=== PATIENT | female | born 1985 | race Caucasian/White ===

== ENCOUNTER 2016-12-03 21:08 | Emergency (ER) | payer BC ==
[~2016-12-03] VITALS: Ht 165.1 cm; Wt 110.6 kg
[~2016-12-03 21:08] MED LIST: PRENATAL VITAMINS PO
[2016-12-03 21:12] VITALS: Ht 165.1 cm; Wt 110.6 kg
--- NOTE | 2016-12-03 21:12 | NUR ---
TRIAGE NOTE PT VOMITED LARGE AMT OF UNDIGESTED FOOD AND LIQUID RELIEF OF PAIN TEMPORARILY
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
[2016-12-03] MEDS ORDERED: [UNRECOGNIZED DRUG - OTHER] (21:25)
[2016-12-03] MEDS ORDERED: NORMAL SALINE 1,000 ML IV ONE (21:57)
[2016-12-03] MEDS ORDERED: MORPHINE SULFATE 4 MG SYRINGE IV ONE (22:00)
[2016-12-03] MEDS ORDERED: ONDANSETRON 4mg/2ml INJECTION IV ONE (22:00)
--- NOTE | 2016-12-03 22:03 | ERPDOC ---
Departure Disposition Decision Date: Dec 03, 2016 Disposition Decision Time: 23:33 Disposition: 01 DISCHARGED HOME, SELF-CARE Impression Impression Impression: Primary Impression: Cholelithiasis Cholelithiasis location: gallbladder and bile duct Cholecystitis presence: without cholecystitis Biliary obstruction: without biliary obstruction Qualified Codes: K80.70 - Calculus of gallbladder and bile duct without cholecystitis without obstruction Additional Impression: Choledocholithiasis Severity: Moderate Condition: Improved Seen By: Physician only Referrals: ADAN SALDAÑA MD, FACS, CWS 2 Days Your physician 1 Week Patient Instructions: Gallstones (ED), Low Fat Diet (ED) Problems/Meds/Labs Reviewed?: Yes Medications reviewed and manag: Yes Follow up care ordered?: Yes Mental Status: Alert, Oriented Scripts Hydrocodone/Acetaminophen (Hydrocodon-Acetaminophen 5-300) 5-300 Tablet 1 TAB PO Q6HPRN Y for PAIN, #20 TAB Prov: DECEMBEREDILBERTO DO 12/03/16 Ondansetron (Ondansetron Odt) 4 Mg Tab.rapdis 4 MG PO Q6HR, #20 TAB Prov: DECEMBEREDILBERTO DO 12/03/16 HPI - Abdominal Pain General Chief Complaint: Abdominal Pain Stated Complaint: SEVERE STOMACH AND BACK PAIN Time Seen by Provider: 21:43 Source: patient, family History/Exam Limitations: no limitations HPI - Abdominal Pain Initial Comments 31yo woman presents to the ER tonight with upper abdominal pain. Pain started 20min after eating a BLT. Pt has had two other episodes of this in the last week , always after eating. Pain is sharp, radiates to her spine and right shoulder, and are worse with food. Pt has never had pain like this before. Only takes vitamins as outpt. Has been trying to lose wt after her third child (delivered 4mos ago). No prior abdominal injury/surgery. Occurred At: home Onset: Rapid Duration: 1 hr Pain Scale: Now: 3/10, Worst: 8/10 Quality: sharpness, stabbing Location: RUQ, LUQ, epigastric Radiation: shoulder, back Activities at Onset: during/after eating Modifying Factors: IMPROVES WITH: rest, vomiting, WORSE WITH: movement, palpation Associated Symptoms: diaphoresis, heartburn, nausea/vomiting Hx of Similar Symptoms: Yes Allergies: Coded Allergies: No Known Drug Allergies (Verified Allergy, Unknown, 12/03/16) Past History Past Medical History Pt denies signifigant PMH Surgical History Denies Surgeries Family History Family PMH: FOUND: cancer, diabetes Vaccines Hx Influenza Vaccination: Yes (2011) Hx Pneumococcal Vaccination: No Social History Does patient use chewing tobac: No Second Hand Exposure: No Substance Use Type: does not use Alcohol Intake: none Review of Systems GI Upper Abdomen: nausea, pain, vomiting, DENIES: dysphagia, food intolerances, heartburn/indigestion, hematemesis Lower Abdomen: DENIES: blood in stool, daniel-colored stools, constipation, diarrhea, melena, pain, painful BM All other Systems All Other Systems: Reviewed and Negative Physical Exam General General Nourishment: well nourished, well developed, appears stated age, no acute distress, adult, obese General Body Habitus: well groomed Vitals and Pain Weight: Kilograms: 110.600 Height (feet): 5 Height (inches): 5.00 Triage Pain Scale: RN VS reviewed by Provider: Yes Normal Exams: Head: Normocephalic w/o trauma Eyes: Pupils are PERRLA w/ EOMI, No scleral icterus, irritation ENMT: No facial trauma, nasal exudates, pharyngeal erythema Neck: Full range of motion, without adenopathy, JVD Lymphatic: No lymphadenopathy Musculoskeletal: No tenderness, or deformity noted Integumentary: No rashes, hives, or bruising noted Neurologic: Patient is alert, and oriented Psychiatric: Patient exhibits, appropriate attention Respiratory (brief) Respiratory: FOUND: clear all maria, equal bilaterally, symmetrical, NOT FOUND : rales, wheezes Cardiovascular (brief) Cardiac: FOUND: regular rate, regular rhythm, NOT FOUND: click, gallop, murmur , pedal edema, peripheral edema, rub Capillary Refill: <2 sec Pulses: all distal extremities, equal, strong Abdomen (brief) Abdominal Brief: FOUND: bowel normo active x4, soft, tender (Mildly TTP along upper quadrants; no peritoneal signs. Neg Jacky's/Lane's.), NOT FOUND: distended, hepatosplenomegaly, pulsatile mass Differential Diagnoses Considering: Biliary Colic, Bowel Obstruction, Cholecystitis, Gastroenteritis, GERD, Hepatitis, Hernia, IBS, Ileus, Pancreatitis, Pneumonia, Pyelonephritis, Renal Colic, UTI, Volvulus Progress Results/Orders Orders Lab Results Medications Current ED Medications Sodium Chloride (Normal Saline IV) 1,000 ml @ 0 mls/hr Q0M ONCE IV Last administered on 12/03/16 22:21; Start 12/03/16 at 21:57; Stop 12/03/16 at 22:00 ; Status DC Morphine Sulfate (Morphine) 4 mg O ONCE IV ; Start 12/03/16 at 22:00; Stop at 22:01; Status DC Ondansetron HCl (Zofran) 4 mg O ONCE IV ; Start 12/03/16 at 22:00; Stop at 22:01; Status DC Iohexol 1 bottle 1 bottle STK-MED ONCE .ROUTE ; Start 12/03/16 at 22:35; Stop at 22:36; Status DC Sodium Chloride (NS) 100 ml @ As Directed STK-MED ONCE .ROUTE ; Start 12/03/16 at 22:35; Stop 12/03/16 at 22:36; Status DC Sodium Chloride (Iv Flush) 10 ml STK-MED ONCE .ROUTE ; Start 12/03/16 at 22:35; Stop 12/03/16 at 22:36; Status DC Acetaminophen/ Hydrocodone Bitart (NORCO 5 (PrePack)) 1 pack O ONCE SENT HOME Last administered on 12/03/16 23:52; Start 12/03/16 at 23:45; Stop 12/03/16 at 23:46; Status DC Ondansetron HCl (ZOFRAN ODT (PrePack)) 1 pack O ONCE SENT HOME Last administered on 12/03/16 23:52; Start 12/03/16 at 23:45; Stop 12/03/16 at 23:46 ; Status DC Progress Progress Discussed dx, prognosis, treatment, and need for f/u with pt. Pt voiced understanding. Pain well controlled at this time. Will d/c to home with f/u as discussed with Gen Surg. Consult/PCP Consult/PCP : Physician Contacted: Dr. Saldaña Time Called: 23:12 Time of first response: 23:15 Type of discussion: Phone Consult/PCP Discussion Details Pt with cholelithiasis/choledocholithiasis without cholecystitis, pancreatitis, or obstruction. If pain is controlled, may go home and f/u in clinic. Give instructions on keshav diet. EDILBERTO PAZ Dec 03, 2016 22:03 Morphine Sulfate PHA 12/03/16 Complete (Morphine) 22:00 Ondansetron Inj PHA 12/03/16 Complete (Zofran) 22:00 LAB 12/03/16 Complete Qualitative, Serum 22:13 Iohexol (Omnipaque) PHA 12/03/16 Complete 22:35 Normal Saline (Ns) PHA 12/03/16 Complete 22:35 Saline Flush (Iv PHA 12/03/16 Complete Flush) 22:35 Lab Results Laboratory Tests Test 12/03/16 22:08 12/03/16 22:20 White Blood Count 11.0T/MM3 Red Blood Count 4.57M/MM3 Hemoglobin 13.4GM/DL Hematocrit 39.8% Mean Corpuscular Volume 87.1UM3 Mean Corpuscular Hemoglobin 29.3UUG Mean Corpuscular Hemoglobin Concent 33.7GM/DL RDW Standard Deviation 41.2FL Platelet Count 254T/MM3 Mean Platelet Volume 8.9UM3 Immature Granulocyte % (Auto) 0.2% Neutrophils (%) (Auto) 73.9% Lymphocytes (%) (Auto) 19.0% Monocytes (%) (Auto) 5.6% Eosinophils (%) (Auto) 1.1% Basophils (%) (Auto) 0.2% Absolute Immature Granulocyte (auto 0.02T/MM3 Absolute Neutrophils (auto) 8.1T/MM3 Absolute Lymphocytes (auto) 2.1T/MM3 Absolute Monocytes (auto) 0.6T/MM3 Absolute Eosinophils (auto) 0.1T/MM3 Absolute Basophils (auto) 0.0T/MM3 Turbidity < 20 Sodium Level 144MEQ/L Potassium Level 3.8MEQ/L Chloride Level 104MEQ/L Carbon Dioxide Level 27MEQ/L Anion Gap 13MEQ/L Blood Urea Nitrogen 13.0MG/DL Creatinine 0.9MG/DL Glomerular Filtration Rate Calc 74 BUN/Creatinine Ratio 14RATIO Glucose Level 114MG/DL Calculated Osmolality 278MOSM/KG Calcium Level 9.6MG/DL Total Bilirubin 1.10MG/DL Icterus Index < 2 Aspartate Amino Transf (AST/SGOT) 101U/L Alanine Aminotransferase (ALT/SGPT) 80U/L Alkaline Phosphatase 104U/L Total Protein 7.5G/DL Albumin 4.3G/DL Globulin 3.2G/DL Albumin/Globulin Ratio 1.3RATIO Lipase 53U/L Human Chorionic Gonadotropin, Qual Negative Chemistry Specimen Hemolysis < 15 Urine Collection Type Cleancatch-midstream Urine Color Yellow Urine Turbidity Sl cloudy Urine pH 5.5 Urine Specific [place] >=1.030 Urine Protein Negative Urine Glucose (UA) Negative Urine Ketones Negative Urine Blood Negative Urine Nitrite Negative Urine Bilirubin Negative Urine Urobilinogen 0.2EU/DL Urine Leukocyte Esterase Negative Urinalysis Comment Microscopic not ind. Medications Current ED Medications Sodium Chloride (Normal Saline IV) 1,000 ml @ 0 mls/hr Q0M ONCE IV Last administered on 12/03/16t 22:21; Start 12/03/16 at 21:57; Stop 12/03/16 at 22:00 ; Status DC Morphine Sulfate (Morphine) 4 mg O ONCE IV ; Start 12/03/16 at 22:00; Stop at 22:01; Status DC Ondansetron HCl (Zofran) 4 mg O ONCE IV ; Start 12/03/16 at 22:00; Stop at 22:01; Status DC Iohexol 1 bottle 1 bottle STK-MED ONCE .ROUTE ; Start 12/03/16 at 22:35; Stop at 22:36; Status DC Sodium Chloride (NS) 100 ml @ As Directed STK-MED ONCE .ROUTE ; Start 12/03/16 at 22:35; Stop 12/03/16 at 22:36; Status DC Sodium Chloride (Iv Flush) 10 ml STK-MED ONCE .ROUTE ; Start 12/03/16 at 22:35; Stop 12/03/16 at 22:36; Status DC Progress Progress Discussed dx, prognosis, treatment, and need for f/u with pt. Pt voiced understanding. Pain well controlled at this time. Will d/c to home with f/u as discussed with Gen Surg. Consult/PCP Consult/PCP : Physician Contacted: Dr. Saldaña Time Called: 23:12 Time of first response: 23:15 Type of discussion: Phone Consult/PCP Discussion Details Pt with cholelithiasis/choledocholithiasis without cholecystitis, pancreatitis, or obstruction. If pain is controlled, may go home and f/u in clinic. Give instructions on ksehav diet. MAYDANYEDILBERTO M DO Dec 03, 2016 22:03
[2016-12-03 22:13] LABS: BASOPHILS % (AUTO) 0.2 % (0-2); EOSINOPHILS # (AUTO) 0.1 T/MM3 (0-0.5); EOSINOPHILS % (AUTO) 1.1 % (0-4); HCT - HEMATOCRIT 39.8 % (36-46); HGB - HEMOGLOBIN 13.4 GM/DL (12-16); IMMATURE GRANULOCYTE # (AUTO) 0.02 T/MM3 (0.00-0.03); IMMATURE GRANULOCYTE % (AUTO) 0.2 % (0.0-0.5); LYMPHOCYTES # (AUTO) 2.1 T/MM3 (1-4.8); MEAN CORPUSCULAR HGB 29.3 UUG (26-34); MEAN CORPUSCULAR HGB CONC(MCHC 33.7 GM/DL (31-37); MEAN CORPUSCULAR VOLUME 87.1 UM3 (80-100); MEAN PLATELET VOLUME 8.9 UM3 (9.4-12.4); MONOCYTES # (AUTO) 0.6 T/MM3 (0-0.8); MONOCYTES % (AUTO) 5.6 % (0-9.0); NEUTROPHILS #(AUTO)-ABSOLUTE 8.1 T/MM3 (1.8-7.7); NEUTROPHILS % (AUTO) 73.9 % (33-66); RED BLOOD COUNT 4.57 M/MM3 (4.00-5.20)
[2016-12-03 22:23] LABS: ALBUMIN 4.3 G/DL (3.5-5.0); ALBUMIN/GLOBULIN RATIO 1.3 RATIO (1.1-2.2); ALKALINE PHOSPHATASE 104 U/L (38-126); ALT (SGPT) 80 U/L (9-52); ANION GAP 13 MEQ/L (5-15); AST (SGOT) 101 U/L (14-36); BUN/CREATININE RATIO 14 RATIO (6-26); CALCIUM 9.6 MG/DL (8.4-10.2); CHLORIDE 104 MEQ/L (98-107); CO2 - CARBON DIOXIDE 27 MEQ/L (22-30); CREATININE 0.9 MG/DL (0.7-1.2); GLOMERULAR FILTRATION RATE 74; GLUCOSE 114 MG/DL (65-110); POTASSIUM 3.8 MEQ/L (3.6-5); SODIUM 144 MEQ/L (134-144); TOTAL PROTEIN 7.5 G/DL (6.3-8.2)
[2016-12-03 22:28] LABS: BLOOD, URINE NEGATIVE (NEGATIVE); COLOR,URINE YELLOW (YELLOW); LEUKOCYTE ESTERASE ,URINE NEGATIVE (NEGATIVE); NITRITE,URINE NEGATIVE (NEGATIVE); UROBILINOGEN,URINE 0.2 EU/DL (NORMAL)
[2016-12-03] MEDS ORDERED: NORMAL SALINE 100 ML ONE (22:35)
[2016-12-03] MEDS ORDERED: SALINE FLUSH 10ml SYRINGE ONE (22:35)
[2016-12-03] MEDS ORDERED: IOHEXOL 300 MG/ML 100ml INJECTION ONE (22:35)
--- NOTE | 2016-12-03 22:35 | NUR ---
IMAGING PT TO IMAGING AT THIS TIME
[2016-12-03 22:41] LABS: LIPASE 53 U/L (23-300)
[2016-12-03] MEDS ORDERED: ONDA4TAB10 PO (23:36)
[2016-12-03] MEDS ORDERED: HYDR-2600 PO (23:36)
[2016-12-03] MEDS ORDERED: ONDANSETRON ODT 4mg #3 (PrePack) SENT HOME ONE (23:45)
[2016-12-03] MEDS ORDERED: HYDROCODONE/APAP 5/325 (PrePack) SENT HOME ONE (23:45)
--- NOTE | 2016-12-03 23:55 | NUR ---
IMAGING PT RETURN TO ROOM FROM IMAGING AT THIS TIME. NO SIGN OF DISTRESS.
[2016-12-03 23:58] VITALS: BP 123/77; PULSE 100; RESP 16; TEMP 97.9; O2SAT 96
--- NOTE | 2016-12-03 23:58 | NUR ---
DEPART PT GIVEN DI FOR GALLSTONES, LOW FAT DIET, NORCO, ZOFRAN, F/U. RX/PREPAK PROVIDED FOR NORCO AND ZOFRAN. PT VERBALIZES UNDERSTANDING OF DI, MEDS, AND NEED FOR F/U WITH PCP AND SURGEON. QUESTIONS ASKED/ANSWERED - DENIES FURTHER QUESTIONS/NEEDS AT THIS TIME. PT CONTINUES TO STATE IMPROVEMENT OF PAIN (08/24) AND NAUSEA AT THIS TIME. IV SITE REMOVED. PERSONAL BELONGINGS GATHERED. PT ESCORTED/AMBULATED TO ED EXIT - GAIT STABLE, NO SIGN OF DISTRESS AT THIS TIME.
--- NOTE | 2016-12-05 09:50 | DI ---
Indication: ITS.REASON: Abd pain PROCEDURE: CT ABD/PELVIS W/CONTRAST ONLY: Encounter: Initial Comparison: None Technique: Axial CT images were performed through the abdomen and pelvis after the administration of intravenous contrast. Coronal and sagittal two-dimensional reformats. Automated Exposure Control and Iterative Reconstruction dose reducing techniques were utilized. Contrast: Omnipaque 300 100 mL Findings: The lung bases are clear. The liver is grossly normal. Numerous gallstones completely filling the gallbladder with a stone near the cystic duct entrance or proximal common duct. The spleen, pancreas and adrenal glands are within normal limits. Kidneys appear normal. No abdominal or pelvic adenopathy. The appendix is normal. Uterus is normal for age. No significant free pelvic fluid. Small bilateral ovarian cysts or follicles. No evidence of a bowel obstruction. Bone windows are unremarkable. Impression: Extensive cholelithiasis with a stone filled gallbladder and possible choledocholithiasis or stone in the cystic duct. No adjacent inflammation or definite CT evidence for acute cholecystitis. Right upper quadrant ultrasound may be helpful for more detailed evaluation. Surgical consultation may be helpful. There is a preliminary report by [employer]. .
[2016-12-08] MEDS ORDERED: ACET-2321 PO (11:01)
== END 2016-12-03 23:58 | disposition home or self-care (01) ==
LOC: ED 21:08
DX: K80.70 Calculus of gallbladder and bile duct without cholecystitis without obstruction (principal)
CPT/HCPCS: 74177; 80053; 81003; 83690; 84703; 85025; 96360; 99284; J7030; J7050; Q9967

== ENCOUNTER 2016-12-09 10:56 | Inpatient (IN) | payer BC ==
[2016-12-09] VITALS (31 sets, daily range): BP systolic 101–130; BP diastolic 53–85; PULSE 92–126; RESP 12–21; TEMP 97.9–99; O2SAT 94–98; Ht 165.1 cm; Wt 109.0 kg
[~2016-12-09] VITALS: Ht 165.1 cm; Wt 109.0 kg
[2016-12-09] MEDS: LR 1,000 ML IV SCH (07:00)
[~2016-12-09 10:56] MED LIST changes: +ACET-2321 PO; -PRENATAL VITAMINS PO
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
[2016-12-09] MEDS ORDERED: ERTAPENEM 1 G in NORMAL SALINE 100 ML IV ONE ×2 (11:45→16:30)
--- NOTE | 2016-12-09 12:22 | ANESPREOP ---
Anesthesia Record Date and Time DATE: 12/09/16 TIME: 12:20 Pre-Op Diagnosis RT. UPPER QUAD. PAIN Proposed Surgical Procedure LAP MIS Allergies: Coded Allergies: No Known Drug Allergies (Verified Allergy, Unknown, 12/03/16) Ht/Wt/BMI Height: 5 ' 5.00 " Weight: 107.200 kg BMI: 39.3 kg/m2 Vital Signs Date Time Temp Pulse Resp B/P Pulse Ox O2 Delivery O2 Flow Rate FiO2 12/09/16 11:33 92 16 12/09/16 11:19 97.9 130/67 95 Room Air Medications Inpatient Medications Current Medications Medications (Trade) Dose Ordered Sig/Kelton Start Time Stop Time Status Last Admin Dose Admin Lactated Ringer's (Lactated Ringers) 1,000 ml @ 30 mls/hr Q24H 12/09/16 07:00 Acetaminophen (Tylenol) 325 Mg Tablet, 1-2 TAB PO QID PRN for PAIN, (Reported) Last Taken: on Unknown Date & Time Currently on Beta Bautista: No Medical/Surgical History Anesthesia PMH: Reports: Obesity, Denies: *Diabetes, Anesthesia Reactions (NO AIRWAY ISSUES), Arthritis, Cancer, Clotting Problems, Glaucoma, Malignant Hyperthermia, Renal Disease, Sleep Apnea, Thyroid Disease Smoking Status: Never smoker Has pt. smoked today?: No Use Chewing Tobacco?: No Second Hand Exposure: No Substance Use Type: does not use Substance last used: unknown Alcohol Intake: none Last Drink: unknown HX of Last Menstrual Period: NOVEMBER 2016 Past Surgical History Orthopedic Surgeries: No Abdominal Surgeries: No Genitourinary Surgeries: No Cardiac Surgeries: No Endocrine Surgeries: No Reproductive Surgeries: No Neurological Surgeries: No Ear Surgeries: No Nose Surgeries: No Throat Surgeries: No Other Surgeries: Yes - WISDOM TEETH Anesthesia Adverse Reactions: FOUND none Family Hx of Anesthesia Advers: none Hx of Motion Sickness: No Pertinent Findings Test 12/09/16 11:07 Urine Test Negative (NEGATIVE) EKG Rhythm: Sinus Rhythm Physical Exam Respiratory: Bilat breath sounds equal, Lungs clear Cardiovascular: FOUND Regular rate, rhythm, FOUND No murmur Airway Assessment Mallampati Score: II TMD: 3 Fingerbreadths Neck Extension: Good Overall Assessment: No Airway Concerns ASA: 2 Plan Anesthesia Plan: GETA Discussion Discussed risks/options/alternatives of anesthesia and questions answered. Patient consents. Nursing pain assessment noted. Present: Spouse Attestation Statement Prior to the delivery of any anesthetic medication, I examined the patient, developed the plan, obtained the patient's consent and discussed the risk and benefits of the procedure with the patient/guardian. SABRA VINCENT CRNA Dec 09, 2016 12:22
[2016-12-09] MEDS ORDERED: MIDAZOLAM 2mg/2ml INJECTION IV ONE (12:30)
[2016-12-09] MEDS ORDERED: PROPOFOL 200mg 20 ML IV ONE (13:22)
[2016-12-09] MEDS ORDERED: LIDOCAINE 2% (20mg/ml) 5ml PF SDV ONE (13:23)
[2016-12-09] MEDS ORDERED: ROCURONIUM 50mg/5ml INJECTION IV ONE ×3 (13:23→17:21)
[2016-12-09] MEDS ORDERED: BUPIVACAINE 0.25%/EPI 1:200,000 30ml SDV ONE (13:30)
[2016-12-09] MEDS ORDERED: SALINE FLUSH 10ml SYRINGE ONE (13:36)
[2016-12-09] MEDS ORDERED: IOHEXOL 300 MG/ML 50ml INJECTION ONE ×3 (13:50→18:06)
[2016-12-09] MEDS ORDERED: LIDOCAINE 1% (10mg/ml) 2ml SDV INJ ONE (14:00)
[2016-12-09] MEDS ORDERED: FENTANYL 250mcg/5ml INJECTION ONE ×2 (14:03→15:48)
[2016-12-09] MEDS ORDERED: DEXAMETHASONE 4mg/ml - 1ml INJECTION ONE (14:24)
[2016-12-09] MEDS ORDERED: KETOROLAC 30mg/ml INJECTION ONE (14:24)
[2016-12-09] MEDS ORDERED: ONDANSETRON 4mg/2ml INJECTION ONE (14:24)
[2016-12-09] MEDS ORDERED: EPHEDRINE SULFATE 50mg/ml INJECTION ONE (15:13)
[2016-12-09] MEDS ORDERED: GLUCAGON 1 MG INJECTION ONE (16:55)
[2016-12-09] MEDS ORDERED: DESFLURANE 240 ML LIQUID IH ONE (16:59)
[2016-12-09] MEDS ORDERED: SUGAMMADEX 200 MG/2 ML INJECTION IV ONE (17:27)
[2016-12-09] MEDS ORDERED: HYDROMORPHONE 2mg/ml INJECTION ONE (17:59)
[2016-12-09] MEDS ORDERED: NORMAL SALINE 1,000 ML IV ONE (19:08)
[2016-12-09] MEDS ORDERED: HYDROMORPHONE PCA 30 MG/30 ML VIAL IV PRN (19:15)
[2016-12-09] MEDS ORDERED: METOCLOPRAMIDE 10mg/2ml INJECTION IV PRN (19:15)
[2016-12-09] MEDS ORDERED: HYDROCODONE/APAP 5 mg/325 mg TABLET PO PRN (19:15)
[2016-12-09] MEDS ORDERED: MORPHINE SULFATE 4 MG SYRINGE IV PRN (19:15)
--- NOTE | 2016-12-09 19:26 | GSPOSTPN ---
Procedure Procedure Date: Dec 09, 2016 Surgeon: Kaylynn Assisting Surgeon: Alex ASA: 2 Procedure laparoscopic with conversion to open cholecystectomy with intraoperative cholangiogram with open common bile duct exploration. GS Diagnosis Postop Diagnosis acute cholecystitis cholelithiasis choledocholithiasis Complications Complications Estimated Blood Loss See Anesthesia Record. Vital Signs See Anesthesia and PACU record. DEANA OLSON [employer] Dec 09, 2016 19:26
[2016-12-09] MEDS ORDERED: HYDROMORPHONE 2mg/ml INJECTION IV PRN (19:30)
[2016-12-09] MEDS ORDERED: ONDANSETRON 4mg/2ml INJECTION IV PRN (19:30)
--- NOTE | 2016-12-09 20:00 | NUR ---
Report received from doctor of medicine. Pt is awake and alert. VSS. Pt states she only hurts right now when she takes a deep breath. Pt will have a [employer]. [employer] explained to the patient. Pt voiced understanding. is in the room. Will be spending the night.
--- NOTE | 2016-12-09 20:02 | ANESPO ---
Post-Op Note Date 12/09/16 Time: 20:00 Status Pt Participated in Evaluation: Pt participated in person Vital Signs Date Time Temp Pulse Resp B/P Pulse Ox O2 Delivery O2 Flow Rate FiO2 12/09/16 19:18 20 12/09/16 11:33 92 12/09/16 11:19 97.9 130/67 95 Room Air Respiratory Function: Airway patent, Regular respirations Cardiovascular Function: Regular pulse Mental Status: Alert/oriented Pain Level Intensity: 4 Hydration: IV infusing Complications during Recovery None apparent Post-Anesthesia Notes Patient place in ICU per surgeon. Patient awake with some discomfort during deep breaths. Good flexion and extension of lower extremeties. Questions answered. Follow-Up Instructions Instructions Per Surgeon WONG THOMPSON CRNA Dec 09, 2016 20:02
[2016-12-10] VITALS (25 sets, daily range): BP systolic 102–127; BP diastolic 60–77; PULSE 70–100; RESP 13–28; TEMP 97.7–98.9; O2SAT 93–99
[2016-12-10] MEDS: D5-1/2 NS KCL 20 MEQ 1,000 ML IV SCH ×4 (00:20→20:33)
--- NOTE | 2016-12-10 06:40 | NUR ---
Pt rested off and on during the night. States that she has pain when she takes deep breaths. Has been using her IS appropriately.
[2016-12-10 07:35] LABS: BASOPHILS % (AUTO) 0.1 % (0-2); EOSINOPHILS % (AUTO) 0.2 % (0-4); HCT - HEMATOCRIT 38.1 % (36-46); HGB - HEMOGLOBIN 12.5 GM/DL (12-16); IMMATURE GRANULOCYTE # (AUTO) 0.01 T/MM3 (0.00-0.03); IMMATURE GRANULOCYTE % (AUTO) 0.1 % (0.0-0.5); LYMPHOCYTES # (AUTO) 1.4 T/MM3 (1-4.8); LYMPHOCYTES % (AUTO) 14.1 % (23-45); MEAN CORPUSCULAR HGB 29.1 UUG (26-34); MEAN CORPUSCULAR HGB CONC(MCHC 32.8 GM/DL (31-37); MEAN CORPUSCULAR VOLUME 88.8 UM3 (80-100); MEAN PLATELET VOLUME 8.6 UM3 (9.4-12.4); MONOCYTES # (AUTO) 0.8 T/MM3 (0-0.8); MONOCYTES % (AUTO) 7.5 % (0-9.0); NEUTROPHILS #(AUTO)-ABSOLUTE 7.8 T/MM3 (1.8-7.7); RED BLOOD COUNT 4.29 M/MM3 (4.00-5.20)
[2016-12-10 07:44] LABS: ALBUMIN 3.4 G/DL (3.5-5.0); ALBUMIN/GLOBULIN RATIO 1.2 RATIO (1.1-2.2); ALKALINE PHOSPHATASE 216 U/L (38-126); ALT (SGPT) 755 U/L (9-52); ANION GAP 11 MEQ/L (5-15); AST (SGOT) 252 U/L (14-36); BUN/CREATININE RATIO 11 RATIO (6-26); CALCIUM 8.7 MG/DL (8.4-10.2); CHLORIDE 107 MEQ/L (98-107); CO2 - CARBON DIOXIDE 25 MEQ/L (22-30); CREATININE 0.7 MG/DL (0.7-1.2); GLOMERULAR FILTRATION RATE 99; GLUCOSE 130 MG/DL (65-110); POTASSIUM 4.3 MEQ/L (3.6-5); SODIUM 143 MEQ/L (134-144); TOTAL PROTEIN 6.3 G/DL (6.3-8.2)
[2016-12-10] MEDS: KETOROLAC 30mg/ml INJECTION IV PRN ×3 (08:30→20:33)
[2016-12-10] MEDS: PANTOPRAZOLE 40mg INJECTION IV SCH (08:36)
--- NOTE | 2016-12-10 08:44 | PNSURG ---
Subjective DATE: 12/10/16 TIME: 08:30 Interval History She is alert, oriented. States the pain/nausea she had preop is gone, but is having a lot of RUQ incisional pain, worse with activity and deep breathing. She has some back pain, but states this got better after she was up. She was able to get up to BR with minimal assist. bile bag with brown bile, YESSY's both with serosanguineous fluid. Objective Vital Signs Date Time Temp Pulse Resp B/P Pulse Ox O2 Delivery O2 Flow Rate FiO2 12/10/16 06:30 16 12/10/16 06:00 73 123/74 95 Nasal Cannula 1.00 12/10/16 04:00 97.7 Height (Feet): 5 Height (Inches): 5.00 Weight (Kilograms): 107.200 BMI 39.3 General Appearance: Alert, Awake, Orientated x 3 Respiratory: FOUND: clear all maria Cardiac: FOUND: regular rate, regular rhythm Abdominal Brief: FOUND: appropriately tender (RUQ subcostal incision and trocar sites), hypoactive bowel sounds, soft Incision: FOUND: tiffanie present (dressings not removed today) Drains Present: FOUND Milind Mclaughlin (x2), FOUND T-tube Drain Output: FOUND: bilious, serosanguinous Laboratory Item Value Date Time Lipase 740 U/L H 12/10/16 0726 Item Value Date Time Total Bilirubin 3.30 MG/DL H 12/10/16 0726 Aspartate Amino Transf (AST/SGOT) 252 U/L H 12/10/16 0726 Alanine Aminotransferase (ALT/SGPT) 755 U/L H 12/10/16 0726 Alkaline Phosphatase 216 U/L H 12/10/16 0726 Laboratory Tests 12/10/16 07:26 Laboratory Tests 12/10/16 07:26 Procedure Procedure Date: Dec 09, 2016 Surgeon: Kaylynn Procedure laparoscopic with conversion to open cholecystectomy with intraoperative cholangiogram with open common bile duct exploration. Assessment & Plan Problems: (1) Choledocholithiasis with acute cholecystitis with obstruction Status: Acute (2) Post-op pain Status: Acute Assessment 4-28 POD #1 Doing well for less than 24 hours post open GB with CDE and t-tube placement. Pain rating 3-5 with G[employer]ERN[employer] RESEARCHER dilaudid, IV Toradol. Morphine available for breakthrough pain but not used yet. Ordered oatmeal for breakfast, stating the nausea she had preop seems to be gone. Bili 3.30, AST 252, ALT 755 not unexpected for extent of work on the common duct last night. Lipase 740, will monitor. Anticipate transfer to surgical floor today. Daily labs. ADAT Code Status Full Code Hospital Course Summary Disclaimer 12-10 POD #1 Doing well for less than 24 hours post open GB with CDE and t-tube placement. Pain rating 3-5 with GOVERNMENT AFFAIRS RESEARCHER dilaudid, IV Toradol. Morphine available for breakthrough pain but not used yet. Ordered oatmeal for breakfast, stating the nausea she had preop seems to be gone. Bili 3.30, AST 252, ALT 755 not unexpected for extent of work on the common duct last night. Lipase 740, will monitor. Anticipate transfer to surgical floor today. Daily labs. DEANA HANSEN APRN Dec 10, 2016 08:34
--- NOTE | 2016-12-10 08:50 | DI ---
Indication: ITS.REASON: CHOLANGIOGRAM PROCEDURE: RF CHOLANGIOGRAM OPERATIVE: Comparison: CT abdomen and pelvis dated December 03, 2016 Findings: 16 fluoroscopic spot images are submitted from an intraoperative cholangiogram. Images demonstrate injection of contrast into the cystic duct with filling of the common duct and intrahepatic biliary tree. Multiple filling defects are seen in the common duct distally. At least nine defects presumably representing stones are present. There is moderate to severe dilatation of the common duct and intrahepatic bile ducts. Contrast flows into the duodenum. The second set of images shows resolution of the filling defects consistent with stone removal. Impression: Intraoperative fluoroscopy as above. Please refer to the dictated operative note for further details. Fluoroscopy time is 187 seconds. Fluoroscopy dose is 8320 mRad. .
--- NOTE | 2016-12-10 08:59 | DI ---
Indication: ITS.REASON: KUB FOREIGN BODY PROCEDURE: KUB: Encounter: Initial Comparison: None Findings: Motion artifact. Surgical drains project over the central and right abdomen. Transverse surgical skin tiffanie. Contrast seen within the small bowel. Contrast within the bladder. No retained radiopaque surgical instruments or sponges identified. Impression: Findings as above. .
--- NOTE | 2016-12-10 09:12 | OPNOTEF ---
DATE OF OPERATION 12/09/2016 SURGEON Waqar Chaidez MD ASSISTANTS Patrick Johnson MD and Yakov Perez APRN. PREOPERATIVE DIAGNOSIS Symptomatic cholelithiasis. POSTOPERATIVE DIAGNOSIS Symptomatic cholelithiasis, choledocholithiasis. PROCEDURE Attempted laparoscopic cholecystectomy with intraoperative cholangiogram and conversion to open cholecystectomy with formal open common bile duct exploration. ANESTHESIA General endotracheal EBL AND FLUIDS Please see chart. BRIEF HISTORY/INDICATIONS Mrs. Green is a 31-year-old female who I recently saw in my office as a result of her history for abdominal pain and the finding of cholelithiasis upon radiograph evaluation. Upon questioning the patient she informed me that she has been experiencing some symptoms, she believes, ever since delivery of her first child about 7 years ago. She also has a 3-month-old at home as well and stated that she has noted some symptoms since the of her last child as well. Recently she developed severe abdominal pain and presented to the emergency room for further evaluation. She did undergo a CT scan that did reveal evidence for a stone within the cystic duct as well as possible choledocholithiasis.. Lab was obtained through the ER and her AST and ALT were minimally elevated, but her total bilirubin was found to within normal limits. It was felt the patient was indeed suffering from symptomatic cholelithiasis. It was therefore recommended she undergo surgical intervention. For completeness please refer to notes included in the patient's chart. FINDINGS Upon laparoscopy, liver edge was smooth without nodularities. Small bowel, omentum, colon, peritoneal surfaces which were visualized were within normal limits. The gallbladder was found to be thickened and contained a component of pericholecystic edema consistent with inflammation. The patient was found to have a stone within the cystic duct that was able to be expressed through a ductotomy. Cholangiography was performed and the patient was found have numerous common bile duct stones. Eventually the patient did require an open laparotomy with formal common bile duct exploration. DESCRIPTION OF PROCEDURE After informed consent was obtained, the patient was brought to the operative suite and placed on the table in supine fashion. Abdomen was then prepped and draped in a sterile fashion. Formal time-out was then completed. 0.25% Marcaine with epinephrine was injected just beneath the level of the umbilicus. A 2-cm curved incision was then made through the area of analgesia. Dissection was carried down through deep subcuticular tissues to underlying fascia. Fascia was then grasped with two Nirmala clamps and retracted anteriorly. A 1 cm incision was then made between the two Nirmala clamps. A hemostat was introduced into the fascial incision and gently spread. A U-stitch was then placed with 0 Vicryl. A 12 mm Renetta port was then placed in the peritoneal cavity and pneumoperitoneum was established to a patient pressure of 15 mmHg utilizing carbon dioxide. Next, three additional 5 mm ports were then placed within the epigastric region, right midabdomen and right lateral wall. The abdominal cavity was explored via laparoscope. Findings were as noted above. The patient was placed in reverse Trendelenburg and rotated towards her left. Fundal portion of the gallbladder was grasped and retracted in a cephalad fashion. An additional grasping Pean was then placed upon the infundibulum of the gallbladder and retracted in a lateral, slightly caudad fashion to provide exposure of triangle of Calot. Dissection was then begun high upon the infundibulum of the gallbladder. Dissection was continued until a critical view of safety had been obtained. Posterior aspect of the infundibulum was completely freed. The only remaining structures coming forth from the infundibulum of the gallbladder were that of the cystic duct and cystic artery. A single hemoclip was then placed upon cystic duct near the infundibulum. Ductotomy was then made just proximally. Once could actually see a stone within the midportion of the cystic duct. Cystic duct was grasped near its common bile duct junction and sequentially grasped back towards the ductotomy. This did result in the expression of about a 6-7 mm stone. Next, cholangiocatheter was then placed in the ductotomy and a cholangiogram was obtained under fluoroscopy. Under fluoroscopy, unfortunately, one could see several filling defects within the common bile duct consistent with choledocholithiasis. No flow was able to be established into the duodenum. Given the larger caliber of the cystic duct, I elected to proceed with a transcystic common bile duct exploration laparoscopically. Choledochoscope was brought forth in the operative field and placed through the cystic duct, through the ductotomy and advanced into the common bile duct. One could then see several large stones within the common bile duct. A few of these stones were basketed utilizing a four-wire basket. Basket was then withdrawn back up towards the cystic duct. To my surprise, the basket became lodged within the common bile duct and could not be brought forth up into the cystic duct as a result of the larger size of the stones. Attempt was made at crushing the stones externally very carefully utilizing a [place] grasper by grabbing the cystic duct and common bile duct junction and trying to break up the stones. This was to no avail. Choledochoscope was then re-advanced back into the common bile duct and I tried to "unbasket" the stones that were within the 4- wire basket. This, however, was to no avail. After a fair amount of time, I concluded that the choledochoscope and the 4-wire basket was somewhat "stuck" within the common bile duct. Given the large number of stones and the fact that the basket was not able to be brought forth back out through the ductotomy , I elected to proceed with conversion to an open procedure. A standard subcostal incision was performed. Dissection was then carried down through deep subcuticular tissues to underlying fascia. External oblique, internal oblique and transverse aponeurosis as well as the peritoneum was opened the extent of the subcostal incision. The incision was made along the entrance site of the choledochoscope and 5 mm port within the epigastric region. Codman retractor was placed to provide adequate exposure. Next, one could then see the choledochoscope and the 4-wire basket as it coursed through the cystic duct. I did place a tie proximally upon the cystic duct next to the infundibulum of the gallbladder so that no further stones could be spilt from the gallbladder and into the ductotomy. The gallbladder was also dissected off the liver bed fossa with the use of electrocautery in a retrograde fashion. Next, I utilized Mccauley scissors and the ductotomy was then extended longitudinally along the cystic duct towards the common bile duct. Now, one could bring up the basket through the ductotomy. There were actually 3-4 stones that had all become basketed within the 4-wire basket. These stones were removed and the choledochoscope was then re-advanced through the longitudinal cystic ductotomy and into the common bile duct. A total of eight stones was removed. Repeat cholangiogram was obtained and, unfortunately, still revealed a stone lodged within the distal common bile duct and no flow could be established into the distal common bile duct. It did appear with the choledochoscope that there was still a remaining stone. Choledochoscope was then once again re-advanced into the ductotomy and into the distal common bile duct. The distal common bile duct stone was fairly large and was lodged at the ampulla making retrieval of the stone fairly difficult. After a fair amount of time I was able to manipulate the 4-wire basket until it encompassed the distal common bile duct stone. Distal common bile duct stone was then able to be removed. Next , a repeat cholangiogram was obtained. Cholangiogram did show at this point in time good flow into duodenum. One could see a good distal taper of the common bile duct. There was also some reflux into the pancreatic duct. Proximally one could see intrahepatic radicles, left and right hepatic duct and common hepatic. No residual filling defects were noted. There was still a very small portion of the cystic duct remnant that remained. I did contemplate between ligating the cystic duct remnant versus placing a T-tube. The mucosa at the common bile duct was somewhat "roughened up" as a result of the multiple common bile duct stones that were present. I elected to go ahead and place a T-tube through the remaining cystic duct remnant. A 14-Japanese T- tube was brought forth to the operative field and the back side of the T-tube was transected. The two limbs of the T tube were then placed through the ductotomy and the T-tube was able to be advanced a small distance into the remaining small cystic duct remnant. A T-tube cholangiogram was then obtained and found to be within normal limits. Cystic duct was transected just beyond the placement of the T-tube. Remaining cystic duct remnant was then closed over the T-tube by placing several simple interrupted sutures of 5-0 Vicryl. Additional saline was then flushed through the T-tube and no extravasation around the entrance of the T-tube into the cystic duct remnant could be seen. T -tube was then brought forth out through the anterior abdominal wall just inferior to the subcostal incision. Two Kayden drains were then placed within the abdomen also through the anterior abdominal wall and lateral abdominal wall. One drain was placed along the edge of the liver and the second was placed in a subhepatic location near the gallbladder fossa. Once the cystic duct had been transected, prior to its closure, the gallbladder was passed off the table as a surgical specimen. Cystic artery was also divided and ligated at the time of removal of the gallbladder. Next, attention was then directed towards closure. Needle count was performed and found to be correct. Fascia was closed in two layers. First, the internal oblique of transversalis aponeurosis was closed a running fashion with #1 PDS. External oblique aponeurosis was then also closed in a running fashion with #1 PDS. Drains were secured to the anterior abdominal wall with 2-0 Prolene. Skin incisions were then closed with tiffanie. The patient was awakened from her anesthetic and currently is in recovery room in stable condition. Additionally, it should be noted that Yakov Perez APRN, was present throughout the entire case and played a pivotal role in providing assistance and exposure during the course of the procedure. DEION
[2016-12-10] MEDS: ONDANSETRON 4mg/2ml INJECTION IV PRN ×2 (09:38→17:23)
--- NOTE | 2016-12-10 12:22 | NUR ---
CM CM IN TO VISIT WITH PT. SHE IS ALERT AND ORIENTED. SHE PLANS TO DC HOME. SHE DENIES DC NEEDS. SHE IS GIVEN CM CONTACT INFORMATION. Addendum: 12/10/16 at 1222 by JACOB MCCULLOUGH RN Amended: Links added.
--- NOTE | 2016-12-10 17:05 | PNF ---
DATE OF SERVICE 12/10/2016 FINDINGS The patient this afternoon was sitting upright in the chair and eating lunch. She states that she is experiencing, as one would expect, some incisional discomfort but overall is doing fairly well. EXAM VITAL SIGNS: Afebrile, normotensive. Please refer to EMR. ABDOMEN: Soft. Minimal incisional tenderness noted. YESSY drainage is serosanguineous and nonbilious in nature. Bile is present within her T-tube. LABORATORY/RADIOGRAPHIC EVALUATION CBC was obtained today and found to be unremarkable. CMP was obtained and her liver function tests were elevated with total bilirubin at 3.3, AST 252, ALT 755, alkaline phosphatase 216. Lipase was also slightly elevated at 740. ASSESSMENT 31-year-old female status post open cholecystectomy with formal common bile duct exploration secondary cholelithiasis/choledocholithiasis. Overall patient is doing well. PLAN Will continue with current care. Will transfer the patient out to floor tomorrow. Upon questioning the patient, she states over the last couple of days she had begun to notice that her urine was becoming darker in nature. I do believe patient's bilirubin was likely elevated preoperatively. Will recheck liver function tests tomorrow. Tomorrow likely clamp the T-tube and continue to follow the patient closely. Overall pleased with the patient's progress/appearance this morning. Will continue to follow closely. DEION
[2016-12-11] VITALS (12 sets, daily range): BP systolic 113–133; BP diastolic 71–77; PULSE 78–89; RESP 15–20; TEMP 97.5–98.6; O2SAT 94–98
[2016-12-11] MEDS: KETOROLAC 30mg/ml INJECTION IV PRN ×4 (02:23→20:40)
[2016-12-11] MEDS: D5-1/2 NS KCL 20 MEQ 1,000 ML IV SCH ×2 (02:24→10:46)
[2016-12-11 05:40] LABS: BASOPHILS % (AUTO) 0.2 % (0-2); EOSINOPHILS # (AUTO) 0.1 T/MM3 (0-0.5); EOSINOPHILS % (AUTO) 0.6 % (0-4); HCT - HEMATOCRIT 36.4 % (36-46); HGB - HEMOGLOBIN 11.7 GM/DL (12-16); IMMATURE GRANULOCYTE # (AUTO) 0.01 T/MM3 (0.00-0.03); IMMATURE GRANULOCYTE % (AUTO) 0.1 % (0.0-0.5); LYMPHOCYTES # (AUTO) 1.6 T/MM3 (1-4.8); LYMPHOCYTES % (AUTO) 16.9 % (23-45); MEAN CORPUSCULAR HGB CONC(MCHC 32.1 GM/DL (31-37); MEAN CORPUSCULAR VOLUME 90.3 UM3 (80-100); MEAN PLATELET VOLUME 9.4 UM3 (9.4-12.4); MONOCYTES # (AUTO) 0.6 T/MM3 (0-0.8); MONOCYTES % (AUTO) 6.3 % (0-9.0); NEUTROPHILS #(AUTO)-ABSOLUTE 7.2 T/MM3 (1.8-7.7); NEUTROPHILS % (AUTO) 75.9 % (33-66); RED BLOOD COUNT 4.03 M/MM3 (4.00-5.20); WBC - WHITE BLOOD COUNT 9.5 T/MM3 (4.5-11.0)
[2016-12-11 05:49] LABS: ALBUMIN 3.3 G/DL (3.5-5.0); ALBUMIN/GLOBULIN RATIO 1.1 RATIO (1.1-2.2); ALKALINE PHOSPHATASE 187 U/L (38-126); ALT (SGPT) 546 U/L (9-52); ANION GAP 8 MEQ/L (5-15); AST (SGOT) 124 U/L (14-36); BUN/CREATININE RATIO 7 RATIO (6-26); CALCIUM 8.9 MG/DL (8.4-10.2); CHLORIDE 107 MEQ/L (98-107); CO2 - CARBON DIOXIDE 25 MEQ/L (22-30); CREATININE 0.7 MG/DL (0.7-1.2); GLOMERULAR FILTRATION RATE 99; GLUCOSE 142 MG/DL (65-110); POTASSIUM 4.1 MEQ/L (3.6-5); SODIUM 140 MEQ/L (134-144); TOTAL PROTEIN 6.2 G/DL (6.3-8.2)
--- NOTE | 2016-12-11 06:26 | NUR ---
Shift summary: PT followed commands. PT a/ox3. PT states she did not use CAVALRY SCOUT much, refused nausea medications. PT took toradol as needed overnight for pain. PT LCTAB. PT drain output charted. PT voided without difficulty. PT uses call light if needed. RN will continue to monitor until oncoming RN assumes care.
[2016-12-11] MEDS: PANTOPRAZOLE 40mg INJECTION IV SCH (08:29)
--- NOTE | 2016-12-11 14:37 | NUR ---
Pain Pt rating pain a 2-10. IV Toradol given per Pt request. This RN encouraged PO pain medication with the Pt at this time. Will continue to monitor.
--- NOTE | 2016-12-11 20:10 | NUR ---
Summary Pts VS stable on RA. Pt up with standby assistance, Pt up to BR multiple times today with adequate urine output. Pt ambulated in the hallway twice this shift and been in recliner all of the shift. Family has been present in the room. Pts T tube has been clamped since 1200 this afternoon, Pt had no discomfort with this. Around 1800 Pt noticed shirt was wet, this RN looked underneath abdominal dressing and noticed dressing was very saturated. Dr. Chaidez notified at that time. Orders were given at that time to unclamp the t-tube. This RN as well as Areli El RN assessed dressing and t-tube once again and noticed tube was unhooked underneath dressing. Dr. Chaidez notified again at that time, new orders were given to cap the t-tube. T-tube capped at this time and new dressing was applied and reinforced, Pt tolerated well. YESSY drains patent. Pt has denied nausea this shift. Pt given PRN Toradol per request for pain, BUS DRIVER in place but Pt has not utilized it this shift. Family present in room at this time, call light w/in reach.
[2016-12-11] MEDS: LR 1,000 ML IV SCH ×2 (20:57→21:30)
--- NOTE | 2016-12-11 23:48 | NUR ---
Chart Check 24 hour chart check completed
[2016-12-12] VITALS (10 sets, daily range): BP systolic 102–127; BP diastolic 61–77; PULSE 77–89; RESP 16–18; TEMP 96.8–97.9; O2SAT 94–96
[2016-12-12] MEDS: KETOROLAC 30mg/ml INJECTION IV PRN (02:47)
[2016-12-12] MEDS: D5-1/2 NS KCL 20 MEQ 1,000 ML IV SCH (04:44)
[2016-12-12 05:51] LABS: BASOPHILS % (AUTO) 0.3 % (0-2); EOSINOPHILS # (AUTO) 0.2 T/MM3 (0-0.5); EOSINOPHILS % (AUTO) 1.9 % (0-4); HCT - HEMATOCRIT 36.6 % (36-46); HGB - HEMOGLOBIN 11.8 GM/DL (12-16); IMMATURE GRANULOCYTE # (AUTO) 0.01 T/MM3 (0.00-0.03); IMMATURE GRANULOCYTE % (AUTO) 0.1 % (0.0-0.5); LYMPHOCYTES # (AUTO) 1.5 T/MM3 (1-4.8); LYMPHOCYTES % (AUTO) 18.8 % (23-45); MEAN CORPUSCULAR HGB CONC(MCHC 32.2 GM/DL (31-37); MEAN CORPUSCULAR VOLUME 89.9 UM3 (80-100); MEAN PLATELET VOLUME 9.8 UM3 (9.4-12.4); MONOCYTES # (AUTO) 0.5 T/MM3 (0-0.8); MONOCYTES % (AUTO) 6.6 % (0-9.0); NEUTROPHILS #(AUTO)-ABSOLUTE 5.7 T/MM3 (1.8-7.7); NEUTROPHILS % (AUTO) 72.3 % (33-66); RED BLOOD COUNT 4.07 M/MM3 (4.00-5.20); WBC - WHITE BLOOD COUNT 7.8 T/MM3 (4.5-11.0)
[2016-12-12 05:57] LABS: ALBUMIN 3.4 G/DL (3.5-5.0); ALBUMIN/GLOBULIN RATIO 1.2 RATIO (1.1-2.2); ALKALINE PHOSPHATASE 168 U/L (38-126); ALT (SGPT) 416 U/L (9-52); ANION GAP 12 MEQ/L (5-15); AST (SGOT) 85 U/L (14-36); BUN/CREATININE RATIO 8 RATIO (6-26); CALCIUM 9.3 MG/DL (8.4-10.2); CHLORIDE 106 MEQ/L (98-107); CO2 - CARBON DIOXIDE 24 MEQ/L (22-30); CREATININE 0.6 MG/DL (0.7-1.2); GLOMERULAR FILTRATION RATE 118; GLUCOSE 112 MG/DL (65-110); POTASSIUM 3.9 MEQ/L (3.6-5); SODIUM 142 MEQ/L (134-144); TOTAL PROTEIN 6.3 G/DL (6.3-8.2)
--- NOTE | 2016-12-12 06:38 | NUR ---
shift summary pt has slept soundly throughout the night, sitting up in recliner. pt states this is much more comfortable and doesn't cause as much pain when trying to get out of bed. vss, pt on ra. d5 1/2 ns + 20kcl running @ 50ml/hr in left hand. regular diet. denies n/v/soa. up with standby assist. pt prefers toradol for pain, pt has not used dilaudid surgical supplies sterilizer for over 24 hours, pt says it makes her very nauseous and would rather not use it. calvin drains x 2 with minimal output. dressing over T-tube site c/d/i, t-tube has remained capped. bilat scd's. at bedside. bed locked and low, bed alarm on. call light within reach. will continue to monitor.
[2016-12-12] MEDS: LR 1,000 ML IV SCH (07:00)
--- NOTE | 2016-12-12 07:58 | NUR ---
URINE PT STARTED HER PERIOD THIS MORNING. GIVEN SANITARY PADS. URINE YELLOW WITH BLOOD AT THIS TIME.
[2016-12-12] MEDS: PANTOPRAZOLE 40mg INJECTION IV SCH (08:54)
[2016-12-12] MEDS ORDERED: IBUPROFEN 400 MG TABLET PO PRN (09:15)
--- NOTE | 2016-12-12 10:43 | NUR ---
PT AMBULATING THE HALLWAYS WITH TO ASSIST. PT ALERT AND ORIENTED X3. DENIES PAIN AT THIS TIME. STEADY GAIT.
--- NOTE | 2016-12-12 13:05 | PNF ---
DATE 12/12/2016 FINDINGS Mrs. Green this morning states that she is feeling significantly better. She is still experiencing some incisional tenderness when she "gets up out of bed." She has been eating better and has not had any element of nausea. EXAM ABDOMEN: Soft, nontender. T-tube is clamped at this time. YESSY bulbs do not contain any bilious material and are serosanguineous. LABORATORY/RADIOGRAPHIC EVALUATION The patient had a CBC and CMP today that was unremarkable. Liver function tests continue to improve on a downward trend. Bilirubin is now down to 1.8 from 3.3 originally. ASSESSMENT 31-year-old female status post open cholecystectomy with common bile duct exploration secondary to symptomatic cholelithiasis/choledocholithiasis. Patient doing well. PLAN Will discharge to home. Please refer to discharge instructions for detail. I am pleased with the patient's progress at this time. DEION
--- NOTE | 2016-12-12 14:37 | NUR ---
DISCHARGE PT DISCHARGED HOME FOR SELF CARE. PT AND VERBALIZED UNDERSTANDING OF DISCHARGE INSTRUCTIONS AND TO ALTERNATE TYLENOL AND MOTRIN NEEDED FOR PAIN. DRESSING CHANGE EDUCATION PROVIDED. YESSY DRAIN EDUCATION PROVIDED. PT PROVIDED WITH DRESSING CHANGE MATERIAL. T TUBE HAS NO LEAKING FOR [address] SALDAÑA CHANGED CAP. PT ESCORTED OUT AND AMBULATED HALLWAYS. TO DRIVE HOME. DISCHARGE PACKET AND BELONGINGS WITH PT AND FAMILY.
== END 2016-12-12 14:37 | disposition home or self-care (01) | DRG 413 ==
LOC: SCU 10:56 → SRG 10:57 → SCU 19:00 → CCU 19:00 → SRG 12-10 19:17
PROVIDERS: ADMIT Surgery; ATTEND Surgery
PROC: 0FC90ZZ Extirpation of Matter from Common Bile Duct, Open Approach (ICD-10-PCS; 2016-12-09)
PROC: 0FJ44ZZ Inspection of Gallbladder, Percutaneous Endoscopic Approach (ICD-10-PCS; 2016-12-09)
PROC: 0FT40ZZ Resection of Gallbladder, Open Approach (ICD-10-PCS; principal; 2016-12-09 14:18)
DX: K80.20 Calculus of gallbladder without cholecystitis without obstruction (principal); Z53.31 Laparoscopic surgical procedure converted to open procedure
CPT/HCPCS: 36415; 80053; 81025; 83690; 85025; J1610

== ENCOUNTER 2017-01-04 16:16 | Emergency (ER) | payer BC ==
[~2017-01-04] VITALS: Ht 165.1 cm; Wt 109.0 kg
[~2017-01-04 16:16] MED LIST changes: -IBUP-14 PO; -IOHEXOL 300 MG/ML 50ml INJECTION ONE; -MV M PO
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
[2017-01-04 16:25] VITALS: Ht 165.1 cm; Wt 109.0 kg
[2017-01-04] MEDS ORDERED: IBUP-14 PO (16:46)
[2017-01-04] MEDS ORDERED: MV M PO (16:46)
--- NOTE | 2017-01-04 17:17 | ERPDOC ---
Departure Disposition Decision Date: January 04, 2017 Disposition Decision Time: 17:16 Disposition: 01 DISCHARGED HOME, SELF-CARE Impression Impression Impression: Primary Impression: Abdominal pain Abdominal location: right upper quadrant Qualified Codes: R10.11 - Right upper quadrant pain Severity: Moderate Condition: Improved Seen By: Physician only Referrals: YOUR PHYSICIAN 1 Week Patient Instructions: Abdominal Pain (ED) Problems/Meds/Labs Reviewed?: Yes Medications reviewed and manag: Yes Additional Instructions: You have had abdominal pain after having your T-tube removed. Take ibuprofen or aleve and tylenol as needed for pain. Drink plenty of fluids. Follow up with your doctor in 1 week and surgeon as directed. Follow up care ordered?: Yes Mental Status: Alert, Oriented HPI - Abdominal Pain General Chief Complaint: Nausea,Vomiting,Diarrhea Stated Complaint: POST SURG PAIN Time Seen by Provider: 16:21 Source: patient, RN/MD History/Exam Limitations: no limitations HPI - Abdominal Pain Initial Comments 31yo woman referred to ER by GS for abdominal pain. Pt had a T-tube placed 1mo ago following cholecystectomy. Had the T-tube pulled in the office today with immediate onset of severe RUQ pain and cramping. Physician gave an IM dose of toradol, but requested that pt be evaluated in the ER for pain control. Occurred At: other Onset: Rapid Duration: 1/2 hour Pain Scale: Now & Worst: 8/10 Quality: cramping, sharpness Location: RUQ Radiation: no radiation Activities at Onset: other Modifying Factors: IMPROVES WITH: rest, WORSE WITH: breathing, movement, palpation Associated Symptoms: nausea/vomiting Hx of Similar Symptoms: No Allergies: Coded Allergies: No Known Drug Allergies (Verified Allergy, Unknown, 12/03/16) Past History Past Medical History GI: gallbladder disease Surgical History General: gallbladder Family History Family PMH: FOUND: cancer, diabetes Vaccines Hx Influenza Vaccination: No (MAY 2016) Hx Pneumococcal Vaccination: No Social History Does patient use chewing tobac: No Second Hand Exposure: No Substance Use Type: does not use Substance last used: unknown Alcohol Intake: none Last Drink: unknown Review of Systems GI Upper Abdomen: pain All other Systems All Other Systems: Reviewed and Negative Physical Exam General General Nourishment: well nourished, well developed, appears stated age, no acute distress, adult, obese General Body Habitus: well groomed Vitals and Pain First Documented Vital Signs Date Time Temp Pulse Resp B/P Pulse Ox O2 Delivery O2 Flow Rate FiO2 01/04/17 16:25 97.9 75 20 144/91 96 Room Air Weight: Kilograms: 109.000 Height (feet): 5 Height (inches): 5.00 Triage Pain Scale: RN VS reviewed by Provider: Yes Respiratory (brief) Respiratory: FOUND: clear all maria, equal bilaterally, symmetrical, NOT FOUND : rales, wheezes Cardiovascular (brief) Cardiac: FOUND: regular rate, regular rhythm, NOT FOUND: click, gallop, murmur , pedal edema, peripheral edema, rub Capillary Refill: <2 sec Pulses: all distal extremities, equal, strong Abdomen (brief) Abdominal Brief: FOUND: bowel normo active x4, soft, tender (Mildly TTP across lower quadrants), NOT FOUND: distended, hepatosplenomegaly, pulsatile mass Supervisory Exam Head: atraumatic Eyes: PERRL Nares: no exudate Neck: trachea midline Musculoskeletal: no deformity or atrophy Neurological: no abnormal movements Skin: pink, dry Psychological: alert, appropriate Differential Diagnoses Considering: Cholecystitis, Constipation, Hepatitis, IBS, Pneumonia Progress Progress Progress 31yo woman with markedly improved abdominal pain after T-tube removal. Pts sx are now almost gone. Will d/c to home with excellent precautions for RTC. Pt voiced understanding of dx, prognosis, tx, and f/u need. Pts sx markedly improved by the time, pt presented to the ER. No significant abns on PE. EDILBERTO PAZ DO January 04, 2017 17:16
[2017-01-04 17:24] VITALS: BP 137/81; PULSE 84; RESP 20; TEMP 97.9; O2SAT 98
== END 2017-01-04 17:24 | disposition home or self-care (01) ==
LOC: ED 16:16
DX: R10.11 Right upper quadrant pain (principal)

== ENCOUNTER → 2017-01-04 | Outpatient (CLI) | payer BC ==
[~2017-01-04] MED LIST changes: +IBUP-14 PO; +IOHEXOL 300 MG/ML 50ml INJECTION ONE; +MV M PO
--- NOTE | 2017-01-04 10:46 | DI ---
Indication: ITS.REASON: Z90.49 ACQUIRED ABSENCE OF GALLBLADDER PROCEDURE: CHOLANGIOGRAM T-TUBE: Encounter: Initial Comparison: Cholangiogram dated December 09, 2016 Technique/Findings: Patient was placed supine on the fluoroscopy table. AP pharmacy scheduler fluoroscopic spot images were obtained of the patient's T-tube. Subsequent gentle hand injection of water-soluble contrast was performed under direct fluoroscopic visualization. This demonstrated immediate filling of the cystic duct stump extending into the common duct proximally and distally. Contrast flowed immediately into the duodenum without evidence of focal filling defect or obstruction. The intrahepatic bile ducts were partially opacified without discrete filling defect. No contrast extravasation outside the biliary tree. Eight fluoroscopic spot images were obtained. Impression: No evidence of contrast extravasation or common duct obstruction. Fluoroscopy time is 66 seconds. Fluoroscopy dose is 11.68 mGy*cm2 .
== END ==
LOC: IMA 09:27
PROVIDERS: ATTEND Surgery
DX: Z90.49 Acquired absence of other specified parts of digestive tract (principal)
CPT/HCPCS: 47531; Q9967